=== PATIENT | male | born 1970 | race American Indian/Alaskan Native ===

== ENCOUNTER 2020-06-03 10:01 | Emergency (ER) | payer MEDICAID, MEDICARE ==
--- NOTE | 2020-06-03 10:57 | XRay Report ---
. XR chest routine 2V INDICATION / CLINICAL INFORMATION: sob COMPARISON: 05/15/2020 FINDINGS: SUPPORT DEVICES: None. HEART / MEDIASTINUM: Prominent but unchanged. Prior valve replacements. LUNGS / PLEURA: Lungs are clear. Costophrenic sulci are sharp. No pneumothorax. ADDITIONAL FINDINGS: No significant additional findings. IMPRESSION: 1. No acute findings. Signer Name: Cristhian Camp MD Signed: 06/03/2020 10:53 AM Workstation Name: [id number]
[2020-06-03 11:26] LABS: Hemoglobin 11.7 gm/dl (11.8-15.2); Mean Corpuscular HGB Conc 33 % (32-34); Mean Corpuscular Volume 91 fl (84-94); Platelet Count 167 K/mm3 (140-440); Red Blood Count 3.87 M/mm3 (3.65-5.03); Red Cell Distribution Width 22.6 % (13.2-15.2)
[2020-06-03 11:42] LABS: Albumin 4.1 g/dL (3.9-5); Calcium 8.6 mg/dL (8.4-10.2)
[2020-06-03] MEDS ORDERED: BENZONATATE 100 MG CAP PO ONE (12:12)
[2020-06-03 12:42] LABS: Basophils % (Manual) 0 % (0.0-1.8); Total Cells Counted 100
[2020-06-03 12:44] LABS: Anisocytosis Few; Macrocytosis Few; Poikilocytosis Few; Schistocytes Rare
[2020-06-03 12:45] LABS: Platelet Estimate Consistent w Auto
--- NOTE | 2020-06-03 12:48 | Emergency Department Report ---
HPI - General Chief Complaint: Nausea/Vomiting/Diarrhea Time Seen by Provider: 06/03/20 11:25 - HPI HPI: This is a 49-year-old -Algerian male presents to the emergency department with a complaint of a 2-week history of increased bowel movements. He says it is not exactly diarrhea but they are soft stools. This is associated with some intermittent cramping left-sided abdominal pains. The patient also complains of a mixed dry and productive cough over the past few days. His niece recently had an upper respiratory infection and he feels that he caught it from her. He has not taken anything for his symptoms prior to presentation. He denies any chest pain, fever, nausea, vomiting. He has a past medical history of end-stage renal disease on hemodialysis on Tuesday/Tuesday/Tuesday, CHF, GERD, hypertension and previous open heart surgery. The patient cannot remember the name of his resident services coordinator. He gets dialyzed at [facility] "near my house." ED Past Medical Hx - Past Medical History Previous Medical History?: Yes Hx Hypertension: Yes Hx Congestive Heart Failure: Yes Hx GERD: Yes Hx Renal Disease: Yes (dialysis [facility]) - Surgical History Past Surgical History?: Yes Hx Open Heart Surgery: Yes Additional Surgical History: open heart x3, most recent 01/2019. lung sx, 01/2019 - Social History Smoking Status: Never Smoker Substance Use Type: None - Medications Home Medications: Home Medications Medication Instructions Recorded Confirmed Last Taken Type Aspirin 81 mg PO DAILY 05/15/20 05/15/20 05/14/20 History Benznidazole 100 mg PO TID 05/15/20 05/15/20 05/14/20 History Fluticasone Propionate 50 mcg INNOSTRIL BID 05/15/20 05/15/20 05/13/20 History Metoprolol Tartrate 25 mg PO BID 05/15/20 05/15/20 05/14/20 History Omeprazole 20 mg PO DAILY 05/15/20 05/15/20 05/13/20 History Warfarin Sodium 4 mg PO DAILY 05/15/20 05/15/20 05/13/20 History Dicyclomine [Bentyl] 20 mg PO QID #28 tablet 05/16/20 Unknown Rx amLODIPine 5 mg PO DAILY #60 tab 05/16/20 Unknown Rx Albuterol Mdi (or & Nicu Only) 2 puff IH QID PRN #8.5 gram 06/03/20 Unknown Rx [ProAir HFA Inhaler] Benzonatate [Tessalon Perles] 100 mg PO Q8HR PRN #20 capsule 06/03/20 Unknown Rx ED Review of Systems ROS: Stated complaint: DIZZINESS, USING THE BATHROOM MORE THEN NORMAL Other details as noted in HPI Comment: All other systems reviewed and negative Constitutional: denies: chills, fever Eyes: denies: eye pain, vision change Respiratory: cough. denies: wheezing Cardiovascular: denies: chest pain, palpitations Gastrointestinal: abdominal pain, diarrhea. denies: nausea, vomiting Genitourinary: denies: dysuria, discharge Musculoskeletal: denies: back pain, arthralgia Skin: denies: rash, lesions Neurological: denies: headache, numbness Physical Exam - Physical Exam Vital Signs: Vital Signs 06/03/20 06/03/20 10:12 11:36 Temperature 98 F Pulse Rate 89 Respiratory 18 18 Rate Blood Pressure 99/65 O2 Sat by Pulse 95 97 Oximetry Physical Exam: GENERAL: The patient is well-developed well-nourished. HENT: Normocephalic. Atraumatic. Patient has moist mucous membranes. EYES: Extraocular motions are intact. NECK: Supple. Trachea is midline. CHEST/LUNGS: Clear to auscultation. There is a productive cough heard during examination. No tachypnea or accessory muscle use. There is no respiratory distress noted. HEART/CARDIOVASCULAR: Regular. There is no tachycardia. There is no murmur. ABDOMEN: Abdomen is soft. No abdominal tenderness to palpation. No guarding. Patient has normal bowel sounds. There is no abdominal distention. SKIN: Skin is warm and dry. NEURO: The patient is awake, alert, and oriented. The patient is cooperative. The patient has no focal neurologic deficits. Normal speech. Cranial nerves II through XII grossly intact. MUSCULOSKELETAL: There is no tenderness or deformity. There is no limitation range of motion. ED Course Vital Signs 06/03/20 06/03/20 10:12 11:36 Temperature 98 F Pulse Rate 89 Respiratory 18 18 Rate Blood Pressure 99/65 O2 Sat by Pulse 95 97 Oximetry ED Medical Decision Making - Lab Data Result diagrams: 06/03/20 10:55 09/01/20 10:55 - Radiology Data Radiology results: report reviewed, image reviewed interpreted by me: Chest x-ray does not show any acute process. There are no pleural effusions, obvious pneumonia and there is no pneumothorax. No significant cardiomegaly. Abdominal x-ray shows nonspecific nonobstructive bowel gas ULTRASOUND ABDOMEN, LIMITED (RIGHT UPPER QUADRANT) INDICATION / CLINICAL INFORMATION: abd pain, elevated liver enzymes. COMPARISON: CT abdomen/pelvis dated 05/15/2020. FINDINGS: PANCREAS: Visualized portion shows no significant abnormality. LIVER: The liver measures 17.4 cm in length and is normal in echogenicity. GALLBLADDER: Surgically absent. BILE DUCTS: No significant abnormality. Common bile duct measures 6 mm. RIGHT KIDNEY: Multiple cysts are seen throughout the right kidney. FREE FLUID: Small volume free fluid is seen within the right upper quadrant. ADDITIONAL FINDINGS: None. IMPRESSION: 1. Small volume free fluid within the right upper quadrant. 2. Polycystic right kidney. - Medical Decision Making Regarding the patient's cough, a chest x-ray was done that does not show any pneumonia, pleural effusions, pneumothorax, or any other acute process. There is a productive cough heard during examination but there is no signs of any respiratory or acute distress. Patient was given a dose of Tessalon Perles in the emergency department which appeared to improve the cough. Patient says that his granddaughter currently has some similar upper respiratory infection type symptoms. It is possible that he got this from her and that all of his symptoms are related to a viral syndrome. The patient has complained of having multiple bowel movements per day but that was not necessarily diarrhea. Abdominal x-ray shows nonspecific nonobstructive bowel gas without any obvious signs of constipation. Patient has a normal CBC. The complete metabolic panel shows elevated liver enzymes with an AST of 263 and an ALT of 386. The patient has complained of some left lateral abdominal pains. This was not reproducible on examination. The abdomen is soft, nondistended and nontoxic in appearance. Secondary to the elevated liver enzymes, the patient had any right upper quadrant ultrasound that showed a small amount of ascites and polycystic right kidney disease. The patient has had reassuring vital signs that his ED course including being afebrile. Patient appears safe for discharge home at this time. He has been instructed to follow-up with his primary care physician and resident services coordinator and continue his normal dialysis regimen. He has been given a prescription for Tessalon Perles for cough and albuterol inhaler. He will return to the emergency department w ith any worsening of his symptoms or with any acute distress. Critical Care Time: No Critical care attestation.: If time is entered above; I have spent that time in minutes in the direct care of this critically ill patient, excluding procedure time. ED Disposition Clinical Impression: ESRD (end stage renal disease), Elevated liver enzymes Upper respiratory infection Qualifiers: URI type: unspecified URI Qualified Code(s): J06.9 - Acute upper respiratory infection, unspecified Abdominal pain Qualifiers: Abdominal location: unspecified location Qualified Code(s): R10.9 - Unspecified abdominal pain Disposition: TO HOME OR SELFCARE Is pt being admited?: No Condition: Stable Instructions: Upper Respiratory Infection (ED), Abdominal Pain (ED), End-Stage Kidney Disease (ED) Additional Instructions: Please follow-up with your primary care physician in the next few days. Continue with your normal dialysis regimen. Return to the emergency department with any worsening of your symptoms or with any acute distress. Prescriptions: Albuterol Mdi (or & Nicu Only) [ProAir HFA Inhaler] 2 puff IH QID PRN #8.5 gram PRN Reason: Shortness Of Breath Benzonatate [Tessalon Perles] 100 mg PO Q8HR PRN #20 capsule PRN Reason: Cough Referrals: PRIMARY CARE, [Primary Care Provider] - 3-5 Days Marketing Reporting Analyst, Your [Other] - 3-5 Days [facility] [Provider Group] - 3-5 Days Time of Disposition: 14:07
--- NOTE | 2020-06-03 13:22 | XRay Report ---
ABDOMEN 2 VIEWS INDICATION / CLINICAL INFORMATION: Abd pain. COMPARISON: CT abdomen and pelvis without contrast from 05/15/2020. FINDINGS: TUBES / LINES: None. BOWEL GAS PATTERN: No significant abnormality. FREE AIR / EXTRALUMINAL GAS: None seen. ADDITIONAL FINDINGS: Severe generalized atherosclerosis is unchanged. Stable cholecystectomy and left nephrectomy changes. CHEST: No acute abnormality or significant change. IMPRESSION: No acute abnormality of the abdomen. Signer Name: Carlos Red MD Signed: 06/03/2020 1:17 PM Workstation Name: [id number]
[2020-06-03] MEDS ORDERED: IPRATROPIUM/ALBUTEROL SULFATE 3 ML AMPUL.NEB IH ONE (13:39)
--- NOTE | 2020-06-03 13:51 | Ultrasound Report ---
ULTRASOUND ABDOMEN, LIMITED (RIGHT UPPER QUADRANT) INDICATION / CLINICAL INFORMATION: abd pain, elevated liver enzymes. COMPARISON: CT abdomen/pelvis dated 05/15/2020. FINDINGS: PANCREAS: Visualized portion shows no significant abnormality. LIVER: The liver measures 17.4 cm in length and is normal in echogenicity. GALLBLADDER: Surgically absent. BILE DUCTS: No significant abnormality. Common bile duct measures 6 mm. RIGHT KIDNEY: Multiple cysts are seen throughout the right kidney. FREE FLUID: Small volume free fluid is seen within the right upper quadrant. ADDITIONAL FINDINGS: None. IMPRESSION: 1. Small volume free fluid within the right upper quadrant. 2. Polycystic right kidney. Signer Name: Eder Pittman MD Signed: 06/03/2020 1:46 PM Workstation Name: [id number]
[2020-06-03 14:09] VITALS: BP 116/70
== END 2020-06-03 14:44 | disposition home or self-care (01) ==
LOC: ED 10:01
DX: I13.2 Hypertensive heart and chronic kidney disease with heart failure and with stage 5 chronic kidney disease, or end stage renal disease (principal); N18.6 End stage renal disease; I50.9 Heart failure, unspecified; J06.9 Acute upper respiratory infection, unspecified; K21.9 Gastro-esophageal reflux disease without esophagitis; Z98.890 Other specified postprocedural states; Z79.899 Other long term (current) drug therapy; Z88.8 Allergy status to other drugs, medicaments and biological substances
CPT/HCPCS: 36415; 71046; 74019; 76705; 80053; 83880; 85007; 85025

== ENCOUNTER 2021-03-03 11:49 | Observation (INO) | payer MEDICARE ==
--- NOTE | 2021-03-03 13:12 | Emergency Department Report ---
HPI - General Chief Complaint: Chest Pain Time Seen by Provider: 03/03/21 12:36 - HPI HPI: Room 1 The patient is a 50-year-old male present with a chief complaint chest tightness and palpitations. The patient states he has had an elevated heart rate in termittently since 02/25/2021. Patient states today while on hemodialysis his heart rate again elevated and he developed chest tightness associated with shortness of breath and nausea. Patient denies vomiting or diaphoresis. Patient admits to cough and states he was Covid + 02/25/2021. Patient states he is uncertain if he had a fever. ED Past Medical Hx - Past Medical History Previous Medical History?: Yes Hx Hypertension: Yes Hx Congestive Heart Failure: Yes Hx GERD: Yes Hx Renal Disease: Yes (dialysis [facility]) - Surgical History Past Surgical History?: Yes Hx Open Heart Surgery: Yes Additional Surgical History: open heart x3, most recent 01/2019. lung sx, 01/2019 - Family History Family history: no significant - Social History Smoking Status: Former Smoker (None since 2002) Substance Use Type: None (Denies illicit drug use) - Medications Home Medications: Home Medications Medication Instructions Recorded Confirmed Last Taken Type Aspirin 81 mg PO DAILY 05/15/20 05/15/20 05/14/20 History Benznidazole 100 mg PO TID 05/15/20 05/15/20 05/14/20 History Fluticasone Propionate 50 mcg INNOSTRIL BID 05/15/20 05/15/20 05/13/20 History Metoprolol Tartrate 25 mg PO BID 05/15/20 05/15/20 05/14/20 History Omeprazole 20 mg PO DAILY 05/15/20 05/15/20 05/13/20 History Warfarin Sodium 4 mg PO DAILY 05/15/20 05/15/20 05/13/20 History Dicyclomine [Bentyl] 20 mg PO QID #28 tablet 05/16/20 Unknown Rx amLODIPine 5 mg PO DAILY #60 tab 05/16/20 Unknown Rx Albuterol Mdi (or & Nicu Only) 2 puff IH QID PRN #8.5 gram 06/03/20 Unknown Rx [ProAir HFA Inhaler] Benzonatate [Tessalon Perles] 100 mg PO Q8HR PRN #20 capsule 06/03/20 Unknown Rx ED Review of Systems ROS: Stated complaint: CHEST PAIN Other details as noted in HPI Constitutional: fever (?). denies: diaphoresis Eyes: denies: eye pain ENT: denies: throat pain Respiratory: shortness of breath Cardiovascular: chest pain, palpitations Endocrine: no symptoms reported Gastrointestinal: nausea. denies: vomiting Genitourinary: denies: testicular pain Musculoskeletal: denies: back pain Neurological: denies: headache Physical Exam - Physical Exam Vital Signs: Vital Signs 03/03/21 12:00 Temperature 97.7 F Pulse Rate 120 H Respiratory 21 Rate Blood Pressure 121/78 O2 Sat by Pulse 100 Oximetry Vital Signs 03/03/21 03/03/21 12:00 14:17 Temperature 97.7 F Pulse Rate 120 H 90 Respiratory 21 Rate Blood Pressure 121/78 114/83 O2 Sat by Pulse 100 Oximetry Physical Exam: GENERAL: The patient is well-developed well-nourished male lying on stretcher not appearing to be in acute distress. [] HEENT: Normocephalic. Atraumatic. Extraocular motions are intact. Patient has moist mucous membranes. NECK: Supple. Trachea midline CHEST/LUNGS: Clear to auscultation. There is no respiratory distress noted. HEART/CARDIOVASCULAR: Irregular. There is tachycardia. ABDOMEN: Abdomen is soft, nontender. Patient has normal bowel sounds. There is no abdominal distention. SKIN: There is no rash. There is no edema. There is no diaphoresis. NEURO: The patient is awake, alert, and oriented. The patient is cooperative. The patient has no focal neurologic deficits. The patient has normal speech MUSCULOSKELETAL: There is no evidence of acute injury. ED Course Vital Signs 03/03/21 12:00 Temperature 97.7 F Pulse Rate 120 H Respiratory 21 Rate Blood Pressure 121/78 O2 Sat by Pulse 100 Oximetry ED Medical Decision Making - Lab Data Result diagrams: 03/03/21 13:13 03/03/21 13:13 Laboratory Tests 03/03/21 03/03/21 03/03/21 13:13 13:13 13:13 WBC 6.7 RBC 4.56 Hgb 12.6 Hct 39.7 MCV 87 MCH 28 MCHC 32 RDW 26.3 H Plt Count 180 PT 27.4 H INR 2.25 H APTT 36.0 Sodium 133 L Potassium 3.7 Chloride 92.5 L Carbon Dioxide 24 Anion Gap 20 BUN 55 H Creatinine 6.8 H Estimated GFR 11 BUN/Creatinine Ratio 8 Glucose 124 H Calcium 9.2 Total Creatine Kinase 116 CK-MB (CK-2) 4.5 H CK-MB (CK-2) Rel Index 3.8 Troponin T 0.104 H* NT-Pro-B Natriuret Pep 80553 H Triglycerides 136 Cholesterol 100 LDL Cholesterol Direct 41 L HDL Cholesterol 46 Cholesterol/HDL Ratio 2.17 - EKG Data -: EKG Interpreted by Me Rate: tachycardia - EKG Data When compared to previous EKG there are: previous EKG unavailable Interpretation: nonspecific ST-T wave dipti (T wave inversions in leads I and aVL), LVH, other (Left bundle branch block) - Radiology Data Radiology results: report reviewed (Chest x-ray), image reviewed (Chest x-ray) interpreted by me: Chest x-ray-no definite focal infiltrates, no pneumothorax [facility] [address] [place] [address] XRay Report Signed Patient: YADIRA DELA CRUZ MR#: [id number] : 1970 Acct:[id number] Age/Sex: 50 / M ADM Date: 03/03/21 Loc: ED Attending Dr: Ordering Physician: KARLEY ZABALA MD Date of Service: 03/03/21 Procedure(s): XR chest 1V ap Accession Number(s): [id number] cc: KARLEY ZABALA MD Fluoro Time In Minutes: XR chest 1V ap INDICATION / CLINICAL INFORMATION: chest pain. COMPARISON: 06/03/2020 FINDINGS: SUPPORT DEVICES: None. HEART /PULMONARY VASCULATURE: Median sternotomy changes with cardiac valve prostheses. There is cardiomegaly. Pulmonary vasculature appears mildly congested. LUNGS / PLEURA: No significant pulmonary or pleural abnormality. No pneumothorax. ADDITIONAL FINDINGS: No significant additional findings. IMPRESSION: Cardiac enlargement with mild congestion of the pulmonary vasculature, suspicious for CHF. Signer Name: Halie Adair MD Signed: 03/03/2021 1:48 PM Workstation Name: [id number] Transcribed By: HO Dictated By: HALIE ADAIR MD Electronically Authenticated By: HALIE ADAIR MD Signed Date/Time: 03/03/21 1348 DD/ 1347 TD/TT: Print Cancel - Differential Diagnosis ACS, A. fib with RVR, GERD, Covid Critical care attestation.: If time is entered above; I have spent that time in minutes in the direct care of this critically ill patient, excluding procedure time. ED Disposition Clinical Impression: Chest pain, Atrial fibrillation with RVR, COVID-19 Disposition: -09 OP ADMIT IP TO THIS HOSP Is pt being admited?: Yes Does the pt Need Aspirin: Yes Condition: Fair Instructions: Nonspecific Chest Pain, Adult Heart Score - HEART Score History: Moderately suspicious EKG: Non-specific Age: 45-65 Risk factors: 1-2 risk factors Troponin: > 3x normal limit HEART Score: 6 - EKG Read Time Time EKG Completed: 13:29 EKG Read Time: 13:35
[2021-03-03] MEDS ORDERED: dilTIAZem 25 MG/5 ML INJ IV ONE (13:33)
[2021-03-03 13:51] LABS: Hematocrit 39.7 % (35.5-45.6); Hemoglobin 12.6 gm/dl (11.8-15.2); Mean Corpuscular HGB Conc 32 % (32-34); Mean Corpuscular Volume 87 fl (84-94); Platelet Count 180 K/mm3 (140-440); Red Blood Count 4.56 M/mm3 (3.65-5.03)
[2021-03-03 13:52] LABS: Red Cell Distribution Width 26.3 % (13.2-15.2)
--- NOTE | 2021-03-03 13:52 | XRay Report ---
XR chest 1V ap INDICATION / CLINICAL INFORMATION: chest pain. COMPARISON: 06/03/2020 FINDINGS: SUPPORT DEVICES: None. HEART /PULMONARY VASCULATURE: Median sternotomy changes with cardiac valve prostheses. There is cardi omegaly. Pulmonary vasculature appears mildly congested. LUNGS / PLEURA: No significant pulmonary or pleural abnormality. No pneumothorax. ADDITIONAL FINDINGS: No significant additional findings. IMPRESSION: Cardiac enlargement with mild congestion of the pulmonary vasculature, suspicious for CHF. Signer Name: Govind Adair MD Signed: 03/03/2021 1:48 PM Workstation Name: [id number]
[2021-03-03 13:58] LABS: INR 2.25 (0.87-1.13)
[2021-03-03 13:59] LABS: Creatine Kinase MB 4.5 ng/mL (0.0-4.0)
[2021-03-03 14:03] LABS: Calcium 9.2 mg/dL (8.4-10.2)
[2021-03-03 14:18] LABS: Chol/HDL Ratio 2.17 %
[2021-03-03] MEDS ORDERED: ASPIRIN 325 MG TAB PO ONE (14:59)
[2021-03-03 15:54] LABS: Total Cells Counted 100
[2021-03-03 15:56] LABS: Anisocytosis Few; Macrocytosis Few; Poikilocytosis Few; Schistocytes Rare
[2021-03-03] MEDS ORDERED: ACETAMINOPHEN 325 MG TAB PO PRN ×2 (16:21→16:31)
[2021-03-03] MEDS ORDERED: ONDANSETRON 4 MG/2 ML INJ IV PRN (16:21)
[2021-03-03] MEDS ORDERED: traMADol 50 MG TAB PO PRN (16:31)
--- NOTE | 2021-03-03 17:56 | History and Physical Report ---
History of Present Illness Date of admission: 03/03/21 16:21 Chief complaint: My chest started feeling tight while I was getting dialysis History of present illness: 50 YO Male with HTN, CHF, ESRD on HD(M,W,F), GERD, Valvular Heart Disease S/P Valve Replacement presents ED for evaluation. Patient reports "my chest felt a little tight while I was on dialysis". Patient states that he experienced left- sided chest pain while undergoing dialysis. Patient states that pain was 3/10, intermittent, lasted only a few seconds. Patient was unable to complete his dialysis session. EMS was notified and upon arrival the patient was found to be in distress and subsequently transported to [facility] for further care and evaluation of the aforementioned symptoms. The patient was seen and evaluated in the emergency department. All lab and imaging studies reviewed. Patient found to have end-stage renal disease, as well as chest pain. Patient placed in observation status and admitted to medical floor. Patient treated with remote telemetry, serial cardiac enzymes and EKG monitoring. Nephrology team consulted in ED. Patient denies fever, chills, palpitation, productive cough, skin rash, recent ill contacts. Patient was diagnosed with coronavirus infection on 02/25/2021. Patient is asymptomatic at this time. Prior admission on 05/15/2020 reviewed. All medication listed at time of admission has been reconciled. Past History Past Medical History: ESRD, GERD, heart failure, hypertension, other (See HPI) Past Surgical History: Other (Cardiac surgery, lung surgery) Social history: single. denies: smoking, alcohol abuse Family history: no significant family history. denies: hypertension Medications and Allergies Allergies Allergy/AdvReac Type Severity Reaction Status Date / Time heparin Allergy Shortness Verified 05/14/20 23:58 of Breath IV dye Allergy Shortness Uncoded 05/14/20 19:42 of Breath Home Medications Medication Instructions Recorded Confirmed Last Taken Type Aspirin 81 mg PO DAILY 05/15/20 05/15/20 05/14/20 History Benznidazole 100 mg PO TID 05/15/20 05/15/20 05/14/20 History Fluticasone Propionate 50 mcg INNOSTRIL BID 05/15/20 05/15/20 05/13/20 History Metoprolol Tartrate 25 mg PO BID 05/15/20 05/15/20 05/14/20 History Omeprazole 20 mg PO DAILY 05/15/20 05/15/20 05/13/20 History Warfarin Sodium 4 mg PO DAILY 05/15/20 05/15/20 05/13/20 History Dicyclomine [Bentyl] 20 mg PO QID #28 tablet 05/16/20 Unknown Rx amLODIPine 5 mg PO DAILY #60 tab 05/16/20 Unknown Rx Albuterol Mdi (or & Nicu Only) 2 puff IH QID PRN #8.5 gram 06/03/20 Unknown Rx [ProAir HFA Inhaler] Benzonatate [Tessalon Perles] 100 mg PO Q8HR PRN #20 capsule 06/03/20 Unknown Rx Active Meds: Active Medications Acetaminophen (Acetaminophen 325 Mg Tab) 650 mg PO Q4H PRN PRN Reason: Pain MILD(1-3)/Fever >100.5/OBRIEN Amlodipine Besylate (Amlodipine 5 Mg Tab) 5 mg PO DAILY [facility] Aspirin (Aspirin Ec 81 Mg Tab) 81 mg PO QDAY [facility] Benzonatate (Benzonatate 100 Mg Cap) 100 mg PO Q8H PRN PRN Reason: Cough Dicyclomine HCl (Dicyclomine 20 Mg Tab) 20 mg PO QID [facility] Fluticasone Propionate (Fluticasone Propionate Nasal [place] 16 Gm) 50 mcg NS BID [facility] Metoprolol Tartrate (Metoprolol Tartrate 25 Mg Tab) 25 mg PO BID [facility] Miscellaneous Medication (Benznidazole) 100 mg PO TID [facility] Ondansetron HCl (Ondansetron 4 Mg/2 Ml Inj) 4 mg IV Q8H PRN PRN Reason: Nausea And Vomiting Pantoprazole Sodium (Pantoprazole 20 Mg Tab) 20 mg PO QDAY [facility] Sodium Chloride (Sodium Chloride 0.9% 10 Ml Flush Syringe) 10 ml IV BID [facility] Sodium Chloride (Sodium Chloride 0.9% 10 Ml Flush Syringe) 10 ml IV PRN PRN PRN Reason: LINE FLUSH Sodium Chloride (Sodium Chloride 0.9% 10 Ml Flush Syringe) 10 ml IV PRN PRN PRN Reason: LINE FLUSH Tramadol HCl (Tramadol 50 Mg Tab) 50 mg PO Q6H PRN PRN Reason: Pain, Moderate (4-6) Warfarin Sodium (Warfarin 2 Mg Tab) 4 mg PO DAILY@1700 [facility] Review of Systems Constitutional: no weight loss, no weight gain, no fever, no sweats Ears, nose, mouth and throat: no ear pain, no tinnitis, no decreased hearing, no nose pain Cardiovascular: chest pain, no orthopnea, no palpitations, no edema Respiratory: no cough, no cough with sputum, no excessive sputum Gastrointestinal: no nausea, no vomiting, no diarrhea, no change in bowel habits Genitourinary Male: no hematuria, no flank pain, no urinary hesitancy, no incontinence Rectal: no pain, no incontinence, no bleeding Musculoskeletal: no neck stiffness, no neck pain, no arm numbness/tingling, no shooting leg pain, no redness of joints Integumentary: no rash, no pruritis, no sores, no wounds Neurological: no head injury, no weakness, no numbness, no tingling, no seizures, no syncope Psychiatric: no anxiety, no change in sleep habits, no sleep disturbances, no h ypersomnia, no change in appetite, no change in libido Endocrine: no cold intolerance, no polyphagia, no polydipsia, no nocturia Hematologic/Lymphatic: no easy bruising, no easy bleeding, no lymphadenopathy Allergic/Immunologic: no persistent infections Exam - Constitutional Vitals: Temp Pulse Resp BP Pulse Ox 97.7 F 95 H 11 L 117/69 100 03/03/21 12:00 03/03/21 17:00 03/03/21 17:00 03/03/21 17:00 03/03/21 17:00 General appearance: Present: mild distress - EENT Eyes: Present: PERRL ENT: hearing intact, clear oral mucosa - Neck Neck: Present: supple, normal ROM - Respiratory Respiratory effort: normal Respiratory: bilateral: CTA - Cardiovascular Heart Sounds: Present: S1 & S2. Absent: rub, click - Extremities Extremities: pulses symmetrical, No edema Peripheral Pulses: within normal limits - Abdominal General gastrointestinal: Present: soft, non-tender, non-distended, normal bowel sounds Male genitourinary: Present: normal - Integumentary Integumentary: Present: clear, warm, dry - Musculoskeletal Musculoskeletal: gait normal, strength equal bilaterally - Psychiatric Psychiatric: appropriate mood/affect, intact judgment & insight - Neurologic Neurologic: CNII-XII intact, moves all extremities HEART Score - HEART Score EKG: Non-specific Age: 45-65 Risk factors: 1-2 risk factors Troponin: Troponin T 0.104 ng/mL (0.00-0.029) H* 03/03/21 13:13 Troponin: > 3x normal limit Results - Labs CBC & Chem 7: 03/03/21 13:13 03/03/21 13:13 Labs: Abnormal lab results 03/03/21 03/03/21 03/03/21 Range/Units 13:13 13:13 13:13 RDW 26.3 H (13.2-15.2) % Seg Neuts % (Manual) 72.0 H (40.0-70.0) % Monocytes % (Manual) 11.0 H (0.0-7.3) % Lymphocytes # (Manual) 1.1 L (1.2-5.4) K/mm3 PT 27.4 H (12.2-14.9) Sec. INR 2.25 H (0.87-1.13) Sodium 133 L (137-145) mmol/L Chloride 92.5 L (98-107) mmol/L BUN 55 H (9-20) mg/dL Creatinine 6.8 H (0.8-1.3) mg/dL Glucose 124 H (75-100) mg/dL CK-MB (CK-2) 4.5 H (0.0-4.0) ng/mL Troponin T 0.104 H* (0.00-0.029) ng/mL NT-Pro-B Natriuret Pep 68101 H (0-450) pg/mL LDL Cholesterol Direct 41 L (50-130) mg/dL Assessment and Plan - Patient Problems (1) Chest pain Current Visit: Yes Status: Acute Plan to address problem: Chest pain protocol: Serial cardiac enzymes, EKG, remote telemetry monitoring, supportive care, morphine, submental oxygen, nitro, aspirin. Blood pressure control. (2) End stage renal disease Current Visit: Yes Status: Acute Plan to address problem: Nephrology team consulted, dialysis as per renal team, strict I's/O, avoid nephrotoxic agents. (3) Valvular heart disease Current Visit: Yes Status: Acute Plan to address problem: Continue therapeutic anticoagulation, supportive care. (4) COVID-19 Current Visit: Yes Status: Acute Plan to address problem: Patient currently asymptomatic, contact precaution, isolation precautions, supportive care. (5) DVT prophylaxis Current Visit: Yes Status: Acute Plan to address problem: SCD to bilateral lower extremities while in bed, continue therapeutic anticoagulation
[2021-03-03] MEDS ORDERED: [UNRECOGNIZED DRUG - OTHER] PO SCH (20:00)
[2021-03-03] MEDS ORDERED: NON-FORMULARY EACH (Metoprolol Tartrate 25 MG) PO SCH (22:00)
[2021-03-03] MEDS ORDERED: FLUTICASONE PROPIONATE 50 MCG InNostril SCH (22:00)
[2021-03-03] MEDS: METOPROLOL TARTRATE 25 MG TAB PO SCH (22:55)
[2021-03-03] MEDS: WARFARIN 2 MG TAB PO SCH (22:57)
[2021-03-03] MEDS: DICYCLOMINE 20 MG TAB PO SCH (22:59)
[2021-03-03] MEDS: BENZONATATE 100 MG CAP PO PRN (22:59)
[2021-03-04 06:30] LABS: INR 2.44 (0.87-1.13)
[2021-03-04 07:28] LABS: Calcium 9.3 mg/dL (8.4-10.2)
--- NOTE | 2021-03-04 08:22 | Progress Note ---
Assessment and Plan Assessment and plan: -- Chest pain/angina Current Visit: Yes Status: Acute Plan to address problem: Aspirin, beta-blockers, nitrates, statin Serial cardiac enzymes, serial EKG Patient has multiple risk factors Cardiology consult --Non-ST elevation CO; Current Visit: Yes Status: Acute Patient has chronic elevation of troponin due to ESRD However patient has multiple risk factors Cardiology consult for further evaluation and management as needed Echocardiogram for LV function ejection fraction if not done last 6 months --History of atrial fibrillation; rate controlled Current Visit: Yes Status: Acute continue beta-blockers, chronic anticoagulation with Coumadin Therapeutic INR --History of valvular heart disease Current Visit: Yes Status: Acute On Coumadin , therapeutic INR Supportive care --ESRD on hemodialysis Current Visit: Yes Status: Acute. Nephrology consulted, HD per schedule --PUI/high suspicion for COVID-19 Current Visit: Yes Status: Acute isolation, contact and droplet Request: A PCR, oxygen evaluation ID consulted for test is positive --DVT prophylaxis Current Visit: Yes Status: Acute Patient is already on Coumadin Closely monitor the patient and adjust the management as needed History Interval history: I have seen and examined the patient at the bedside Patient's chart and medications reviewed Patient complains of some chest pain Positive troponins[patient has chronic elevation of troponins due to ESRD] However patient has multiple risk factors Vital signs noted Hospitalist Physical - Constitutional Vitals: Temp Pulse Resp BP Pulse Ox 97.5 F L 96 H 20 98/61 93 03/04/21 05:17 03/04/21 05:17 03/04/21 05:17 03/04/21 05:17 03/04/21 05:17 General appearance: Present: mild distress, well-nourished - EENT Eyes: Present: PERRL, EOM intact - Neck Neck: Present: supple, normal ROM - Respiratory Respiratory effort: normal Respiratory: bilateral: diminished, negative: rales, rhonchi, wheezing - Cardiovascular Rhythm: regular Heart Sounds: Present: S1 & S2 - Extremities Extremities: no ischemia, No edema - Abdominal General gastrointestinal: soft, non-tender, non-distended, normal bowel sounds - Integumentary Integumentary: Present: clear, warm - Psychiatric Psychiatric: appropriate mood/affect, cooperative - Neurologic Neurologic: CNII-XII intact, moves all extremities HEART Score - HEART Score EKG: Non-specific Age: 45-65 Risk factors: 1-2 risk factors Troponin: WBC 6.7 K/mm3 (4.5-11.0) 03/03/21 13:13 RBC 4.56 M/mm3 (3.65-5.03) 03/03/21 13:13 Hgb 12.6 gm/dl (11.8-15.2) 03/03/21 13:13 Hct 39.7 % (35.5-45.6) 03/03/21 13:13 MCV 87 fl (84-94) 03/03/21 13:13 MCH 28 pg (28-32) 03/03/21 13:13 MCHC 32 % (32-34) 03/03/21 13:13 RDW 26.3 % (13.2-15.2) H 03/03/21 13:13 Plt Count 180 K/mm3 (140-440) 03/03/21 13:13 Add Manual Diff Complete 03/03/21 13:13 Total Counted 100 03/03/21 13:13 Seg Neuts % (Manual) 72.0 % (40.0-70.0) H 03/03/21 13:13 Lymphocytes % (Manual) 17.0 % (13.4-35.0) 03/03/21 13:13 Monocytes % (Manual) 11.0 % (0.0-7.3) H 03/03/21 13:13 Nucleated RBC % Not Reportable 03/03/21 13:13 Seg Neutrophils # Man 4.8 K/mm3 (1.8-7.7) 03/03/21 13:13 Band Neutrophils # 0.0 K/mm3 03/03/21 13:13 Lymphocytes # (Manual) 1.1 K/mm3 (1.2-5.4) L 03/03/21 13:13 Abs React Lymphs (Man) 0.0 K/mm3 03/03/21 13:13 Monocytes # (Manual) 0.7 K/mm3 (0.0-0.8) 03/03/21 13:13 Eosinophils # (Manual) 0.0 K/mm3 (0.0-0.4) 03/03/21 13:13 Basophils # (Manual) 0.0 K/mm3 (0.0-0.1) 03/03/21 13:13 Metamyelocytes # 0.0 K/mm3 03/03/21 13:13 Myelocytes # 0.0 K/mm3 03/03/21 13:13 Promyelocytes # 0.0 K/mm3 03/03/21 13:13 Blast Cells # 0.0 K/mm3 03/03/21 13:13 WBC Morphology Not Reportable 03/03/21 13:13 Hypersegmented Neuts Not Reportable 03/03/21 13:13 Hyposegmented Neuts Not Reportable 03/03/21 13:13 Hypogranular Neuts Not Reportable 03/03/21 13:13 Smudge Cells Not Reportable 03/03/21 13:13 Toxic Granulation Not Reportable 03/03/21 13:13 Toxic Vacuolation Not Reportable 03/03/21 13:13 Dohle Bodies Not Reportable 03/03/21 13:13 Pelger-Huet Anomaly Not Reportable 03/03/21 13:13 Dia Rods Not Reportable 03/03/21 13:13 Platelet Estimate Not Reportable 03/03/21 13:13 Clumped Platelets Not Reportable 03/03/21 13:13 Plt Clumps, EDTA Not Reportable 03/03/21 13:13 Large Platelets Not Reportable 03/03/21 13:13 Giant Platelets Not Reportable 03/03/21 13:13 Platelet Satelliting Not Reportable 03/03/21 13:13 Plt Morphology Comment Not Reportable 03/03/21 13:13 RBC Morphology Not Reportable 03/03/21 13:13 Dimorphic RBCs Not Reportable 03/03/21 13:13 Polychromasia Not Reportable 03/03/21 13:13 Hypochromasia Not Reportable 03/03/21 13:13 Poikilocytosis Few 03/03/21 13:13 Anisocytosis Few 03/03/21 13:13 Microcytosis Not Reportable 03/03/21 13:13 Macrocytosis Few 03/03/21 13:13 Spherocytes Not Reportable 03/03/21 13:13 Pappenheimer Bodies Not Reportable 03/03/21 13:13 Sickle Cells Not Reportable 03/03/21 13:13 Target Cells Not Reportable 03/03/21 13:13 Tear Drop Cells Not Reportable 03/03/21 13:13 Ovalocytes Not Reportable 03/03/21 13:13 Helmet Cells Not Reportable 03/03/21 13:13 [place] Bodies Not Reportable 03/03/21 13:13 [place] Rings Not Reportable 03/03/21 13:13 [place] Cells Not Reportable 03/03/21 13:13 Bite Cells Not Reportable 03/03/21 13:13 Crenated Cell Not Reportable 03/03/21 13:13 Elliptocytes Not Reportable 03/03/21 13:13 Acanthocytes (Spur) Not Reportable 03/03/21 13:13 Rouleaux Not Reportable 03/03/21 13:13 Hemoglobin C Crystals Not Reportable 03/03/21 13:13 Schistocytes Rare 03/03/21 13:13 Malaria parasites Not Reportable 03/03/21 13:13 Cedric Bodies Not Reportable 03/03/21 13:13 Hem Pathologist Commnt No 03/03/21 13:13 PT 29.1 Sec. (12.2-14.9) H 03/04/21 05:54 INR 2.44 (0.87-1.13) H 03/04/21 05:54 APTT 36.0 Sec. (24.2-36.6) 03/03/21 13:13 Sodium 135 mmol/L (137-145) L 03/04/21 05:54 Potassium 4.3 mmol/L (3.6-5.0) 03/04/21 05:54 Chloride 95.1 mmol/L (98-107) L 03/04/21 05:54 Carbon Dioxide 22 mmol/L (22-30) 03/04/21 05:54 Anion Gap 22 mmol/L 03/04/21 05:54 BUN 82 mg/dL (9-20) H 03/04/21 05:54 Creatinine 8.9 mg/dL (0.8-1.3) H 03/04/21 05:54 Estimated GFR 8 ml/min 03/04/21 05:54 BUN/Creatinine Ratio 9 % 03/04/21 05:54 Glucose 99 mg/dL (75-100) 03/04/21 05:54 Calcium 9.3 mg/dL (8.4-10.2) 03/04/21 05:54 Total Creatine Kinase 116 units/L (55-170) 03/03/21 13:13 CK-MB (CK-2) 4.5 ng/mL (0.0-4.0) H 03/03/21 13:13 CK-MB (CK-2) Rel Index 3.8 (0-4) 03/03/21 13:13 Troponin T 0.122 ng/mL (0.00-0.029) H* 03/03/21 22:44 NT-Pro-B Natriuret Pep 39025 pg/mL (0-450) H 03/03/21 13:13 Triglycerides 136 mg/dL (2-149) 03/03/21 13:13 Cholesterol 100 mg/dL (50-199) 03/03/21 13:13 LDL Cholesterol Direct 41 mg/dL (50-130) L 03/03/21 13:13 HDL Cholesterol 46 mg/dL (40-59) 03/03/21 13:13 Cholesterol/HDL Ratio 2.17 % 03/03/21 13:13 Troponin: > 3x normal limit Results - Labs CBC & Chem 7: 03/03/21 13:13 03/05/21 08:00 Labs: Laboratory Last Values WBC 6.7 K/mm3 (4.5-11.0) 03/03/21 13:13 RBC 4.56 M/mm3 (3.65-5.03) 03/03/21 13:13 Hgb 12.6 gm/dl (11.8-15.2) 03/03/21 13:13 Hct 39.7 % (35.5-45.6) 03/03/21 13:13 MCV 87 fl (84-94) 03/03/21 13:13 MCH 28 pg (28-32) 03/03/21 13:13 MCHC 32 % (32-34) 03/03/21 13:13 RDW 26.3 % (13.2-15.2) H 03/03/21 13:13 Plt Count 180 K/mm3 (140-440) 03/03/21 13:13 Add Manual Diff Complete 03/03/21 13:13 Total Counted 100 03/03/21 13:13 Seg Neuts % (Manual) 72.0 % (40.0-70.0) H 03/03/21 13:13 Lymphocytes % (Manual) 17.0 % (13.4-35.0) 03/03/21 13:13 Monocytes % (Manual) 11.0 % (0.0-7.3) H 03/03/21 13:13 Nucleated RBC % Not Reportable 03/03/21 13:13 Seg Neutrophils # Man 4.8 K/mm3 (1.8-7.7) 03/03/21 13:13 Band Neutrophils # 0.0 K/mm3 03/03/21 13:13 Lymphocytes # (Manual) 1.1 K/mm3 (1.2-5.4) L 03/03/21 13:13 Abs React Lymphs (Man) 0.0 K/mm3 03/03/21 13:13 Monocytes # (Manual) 0.7 K/mm3 (0.0-0.8) 03/03/21 13:13 Eosinophils # (Manual) 0.0 K/mm3 (0.0-0.4) 03/03/21 13:13 Basophils # (Manual) 0.0 K/mm3 (0.0-0.1) 03/03/21 13:13 Metamyelocytes # 0.0 K/mm3 03/03/21 13:13 Myelocytes # 0.0 K/mm3 03/03/21 13:13 Promyelocytes # 0.0 K/mm3 03/03/21 13:13 Blast Cells # 0.0 K/mm3 03/03/21 13:13 WBC Morphology Not Reportable 03/03/21 13:13 Hypersegmented Neuts Not Reportable 03/03/21 13:13 Hyposegmented Neuts Not Reportable 03/03/21 13:13 Hypogranular Neuts Not Reportable 03/03/21 13:13 Smudge Cells Not Reportable 03/03/21 13:13 Toxic Granulation Not Reportable 03/03/21 13:13 Toxic Vacuolation Not Reportable 03/03/21 13:13 Dohle Bodies Not Reportable 03/03/21 13:13 Pelger-Huet Anomaly Not Reportable 03/03/21 13:13 Dai Rods Not Reportable 03/03/21 13:13 Platelet Estimate Not Reportable 03/03/21 13:13 Clumped Platelets Not Reportable 03/03/21 13:13 Plt Clumps, EDTA Not Reportable 03/03/21 13:13 Large Platelets Not Reportable 03/03/21 13:13 Giant Platelets Not Reportable 03/03/21 13:13 Platelet Satelliting Not Reportable 03/03/21 13:13 Plt Morphology Comment Not Reportable 03/03/21 13:13 RBC Morphology Not Reportable 03/03/21 13:13 Dimorphic RBCs Not Reportable 03/03/21 13:13 Polychromasia Not Reportable 03/03/21 13:13 Hypochromasia Not Reportable 03/03/21 13:13 Poikilocytosis Few 03/03/21 13:13 Anisocytosis Few 03/03/21 13:13 Microcytosis Not Reportable 03/03/21 13:13 Macrocytosis Few 03/03/21 13:13 Spherocytes Not Reportable 03/03/21 13:13 Pappenheimer Bodies Not Reportable 03/03/21 13:13 Sickle Cells Not Reportable 03/03/21 13:13 Target Cells Not Reportable 03/03/21 13:13 Tear Drop Cells Not Reportable 03/03/21 13:13 Ovalocytes Not Reportable 03/03/21 13:13 Helmet Cells Not Reportable 03/03/21 13:13 [place] Bodies Not Reportable 03/03/21 13:13 [place] Rings Not Reportable 03/03/21 13:13 [place] Cells Not Reportable 03/03/21 13:13 Bite Cells Not Reportable 03/03/21 13:13 Crenated Cell Not Reportable 03/03/21 13:13 Elliptocytes Not Reportable 03/03/21 13:13 Acanthocytes (Spur) Not Reportable 03/03/21 13:13 Rouleaux Not Reportable 03/03/21 13:13 Hemoglobin C Crystals Not Reportable 03/03/21 13:13 Schistocytes Rare 03/03/21 13:13 Malaria parasites Not Reportable 03/03/21 13:13 Cedric Bodies Not Reportable 03/03/21 13:13 Hem Pathologist Commnt No 03/03/21 13:13 PT 29.1 Sec. (12.2-14.9) H 03/04/21 05:54 INR 2.44 (0.87-1.13) H 03/04/21 05:54 APTT 36.0 Sec. (24.2-36.6) 03/03/21 13:13 Sodium 135 mmol/L (137-145) L 03/04/21 05:54 Potassium 4.3 mmol/L (3.6-5.0) 03/04/21 05:54 Chloride 95.1 mmol/L (98-107) L 03/04/21 05:54 Carbon Dioxide 22 mmol/L (22-30) 03/04/21 05:54 Anion Gap 22 mmol/L 03/04/21 05:54 BUN 82 mg/dL (9-20) H 03/04/21 05:54 Creatinine 8.9 mg/dL (0.8-1.3) H 03/04/21 05:54 Estimated GFR 8 ml/min 03/04/21 05:54 BUN/Creatinine Ratio 9 % 03/04/21 05:54 Glucose 99 mg/dL (75-100) 03/04/21 05:54 Calcium 9.3 mg/dL (8.4-10.2) 03/04/21 05:54 Total Creatine Kinase 116 units/L (55-170) 03/03/21 13:13 CK-MB (CK-2) 4.5 ng/mL (0.0-4.0) H 03/03/21 13:13 CK-MB (CK-2) Rel Index 3.8 (0-4) 03/03/21 13:13 Troponin T 0.122 ng/mL (0.00-0.029) H* 03/03/21 22:44 NT-Pro-B Natriuret Pep 22735 pg/mL (0-450) H 03/03/21 13:13 Triglycerides 136 mg/dL (2-149) 03/03/21 13:13 Cholesterol 100 mg/dL (50-199) 03/03/21 13:13 LDL Cholesterol Direct 41 mg/dL (50-130) L 03/03/21 13:13 HDL Cholesterol 46 mg/dL (40-59) 03/03/21 13:13 Cholesterol/HDL Ratio 2.17 % 03/03/21 13:13 [place]eda/IV: Voiding Method Toilet Active Medications - Current Medications Current Medications: Generic Name Dose Route Start Last Admin Trade Name Freq PRN Reason Stop Dose Admin Acetaminophen 650 mg 03/03/21 16:21 Acetaminophen 325 Mg Tab PO Q4H PRN Pain MILD(1-3)/Fever >100.5/OBRIEN Amlodipine Besylate 5 mg 03/04/21 10:00 Amlodipine 5 Mg Tab PO DAILY [facility] Aspirin 81 mg 03/04/21 10:00 Aspirin Ec 81 Mg Tab PO QDAY [facility] Benzonatate 100 mg 03/03/21 16:23 03/03/21 22:59 Benzonatate 100 Mg Cap PO 100 mg Q8H PRN Administration Cough Dicyclomine HCl 20 mg 03/03/21 18:00 03/03/21 22:59 Dicyclomine 20 Mg Tab PO 20 mg QID [facility] Administration Fluticasone Propionate 50 mcg 03/04/21 10:00 Fluticasone Propionate Nasal [place] 16 Gm NS BID [facility] Metoprolol Tartrate 25 mg 03/03/21 22:00 03/03/21 22:55 Metoprolol Tartrate 25 Mg Tab PO Not Given BID [facility] Ondansetron HCl 4 mg 03/03/21 16:21 03/03/21 22:59 Ondansetron 4 Mg/2 Ml Inj IV 4 mg Q8H PRN Administration Nausea And Vomiting Pantoprazole Sodium 20 mg 03/04/21 10:00 Pantoprazole 20 Mg Tab PO QDAY [facility] Sodium Chloride 10 ml 03/03/21 22:00 03/03/21 22:59 Sodium Chloride 0.9% 10 Ml Flush Syringe IV 10 ml BID NARDA Administration Sodium Chloride 10 ml 03/03/21 16:21 Sodium Chloride 0.9% 10 Ml Flush Syringe IV PRN PRN LINE FLUSH Tramadol HCl 50 mg 03/03/21 16:31 Tramadol 50 Mg Tab PO Q6H PRN Pain, Moderate (4-6) Warfarin Sodium 4 mg 03/03/21 17:00 03/03/21 22:57 Warfarin 2 Mg Tab PO 4 mg DAILY@1700 [facility] Administration
[2021-03-04] MEDS: DICYCLOMINE 20 MG TAB PO SCH ×5 (09:22→22:05)
[2021-03-04] MEDS ORDERED: WARFARIN SODIUM 4 MG PO SCH (10:00)
[2021-03-04] MEDS ORDERED: amLODIPine 5 MG TAB PO SCH (10:00)
[2021-03-04] MEDS ORDERED: NON-FORMULARY EACH (Aspirin 81 MG) PO SCH (10:00)
[2021-03-04] MEDS ORDERED: NON-FORMULARY EACH (Omeprazole 20 MG) PO SCH (10:00)
--- NOTE | 2021-03-04 10:15 | Electrocardiograph Report ---
[facility] Test Date: 2021-03-03 Test Time: 13:29:22 Pat Name: YADIRA DELA CRUZ Department: Room: A359 1 Gender: M Medical Laboratory Assistant: TEO : 1970 Requested By: KARLEY ZABALA Order Number: [id number] Reading MD: Augustine Elias Measurements Intervals [place] Rate: 116 P: 81 IN: 336 QRS: -55 QRSD: 171 T: 99 QT: 403 QTc: 561 Interpretive Statements Sinus tachycardia Ventricular premature complex Prolonged IN interval Biatrial enlargement Left bundle branch block Electronically Signed On 03-04-2021 10:15:07 EDT by Augustine Elias
--- NOTE | 2021-03-04 10:17 | Electrocardiograph Report ---
[facility] Test Date: 2021-03-04 Test Time: 08:04:33 Pat Name: YADIRA DELA CRUZ Department: Room: A359 1 Gender: M White Mixing Operator: HAYLEY : 1970 Requested By: LYUDMILA FORD Order Number: [id number] Reading MD: Augustine Elias Measurements Intervals [place] Rate: 89 P: 61 MA: 196 QRS: -58 QRSD: 176 T: 91 QT: 438 QTc: 534 Interpretive Statements Sinus rhythm Probable left atrial enlargement Left bundle branch block Compared to ECG 03/03/2021 13:29:22 Sinus tachycardia no longer present Ventricular premature complex(es) no longer present First degree AV block no longer present Intraventricular conduction delay no longer present ST (T wave) deviation no longer present Electronically Signed On 03-04-2021 10:17:18 EDT by Augustine Elias
[2021-03-04] MEDS: ASPIRIN EC 81 MG TAB PO SCH (10:39)
[2021-03-04] MEDS: BENZONATATE 100 MG CAP PO PRN (10:40)
[2021-03-04] MEDS: PANTOPRAZOLE 20 MG TAB PO SCH (10:40)
[2021-03-04] MEDS: METOPROLOL TARTRATE 25 MG TAB PO SCH ×3 (10:41→22:07)
[2021-03-04] MEDS: FLUTICASONE PROPIONATE NASAL SPRAY 16 GM NS SCH ×2 (10:46→22:08)
--- NOTE | 2021-03-04 12:07 | Electrocardiograph Report ---
[facility] Test Date: 2021-03-04 Test Time: 11:03:22 Pat Name: YADIRA DELA CRUZ Department: Room: A359 1 Gender: M Tool Grinder: HAYLEY : 1970 Requested By: LYUDMILA FORD Order Number: [id number] Reading MD: Augustine Elias Measurements Intervals [place] Rate: 92 P: 53 CO: 190 QRS: -55 QRSD: 175 T: 101 QT: 428 QTc: 530 Interpretive Statements Sinus rhythm Left bundle branch block Electronically Signed On 03-04-2021 12:07:01 EDT by Augustine Elias
--- NOTE | 2021-03-04 14:29 | Consultation ---
History of Present Illness - Reason for Consult Consult date: 03/04/21 - History of Present Illness This tana 49 year old male who presented to the E.R for a chief complaint of cough and chest pains during his dialysis treatment yesterday. Patient goes to [facility] on T,T,S schedule currently at their covid clinic as he is COVID positive. Patient not directly seen and examined to limit and reduce the risk of exposure due to being covid positive. 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 We are being consulted for management of this patient's ESRD. Past History Past Medical History: ESRD, GERD, heart failure, hypertension, other (See HPI) Past Surgical History: Other (Cardiac surgery, lung surgery) Social history: single. denies: smoking, alcohol abuse Family history: no significant family history. denies: hypertension Medications and Allergies Allergies Allergy/AdvReac Type Severity Reaction Status Date / Time heparin Allergy Shortness Verified 05/14/20 23:58 of Breath IV dye Allergy Shortness Uncoded 05/14/20 19:42 of Breath Home Medications Medication Instructions Recorded Confirmed Last Taken Type Aspirin 81 mg PO DAILY 05/15/20 03/04/21 03/02/21 10:00 History Benznidazole 100 mg PO TID 05/15/20 03/04/21 03/02/21 10:00 History Fluticasone Propionate 50 mcg INNOSTRIL BID 05/15/20 03/04/21 03/02/21 History Metoprolol Tartrate 25 mg PO BID 05/15/20 03/04/21 03/02/21 08:00 History 25 Omeprazole 20 mg PO DAILY 05/15/20 03/04/21 03/02/21 08:00 History Warfarin Sodium 4 mg PO DAILY 05/15/20 03/04/21 03/02/21 History Dicyclomine [Bentyl] 20 mg PO QID #28 tablet 05/16/20 03/04/21 03/04/21 10:00 Rx amLODIPine 5 mg PO DAILY #60 tab 05/16/20 03/04/21 03/02/21 Rx Albuterol Mdi (or & Nicu Only) 2 puff IH QID PRN #8.5 gram 06/03/20 03/04/21 03/02/21 10:00 Rx [ProAir HFA Inhaler] Benzonatate [Tessalon Perles] 100 mg PO Q8HR PRN #20 capsule 06/03/20 03/04/21 03/02/21 Rx Active Meds: Active Medications Acetaminophen (Acetaminophen 325 Mg Tab) 650 mg PO Q4H PRN PRN Reason: Pain MILD(1-3)/Fever >100.5/OBRIEN Amlodipine Besylate (Amlodipine 5 Mg Tab) 5 mg PO DAILY [facility] Last Admin: 03/04/21 10:41 Dose: Not Given Documented by: Aspirin (Aspirin Ec 81 Mg Tab) 81 mg PO QDAY [facility] Last Admin: 03/04/21 10:39 Dose: 81 mg Documented by: Benzonatate (Benzonatate 100 Mg Cap) 100 mg PO Q8H PRN PRN Reason: Cough Last Admin: 03/04/21 10:40 Dose: 100 mg Documented by: Dicyclomine HCl (Dicyclomine 20 Mg Tab) 20 mg PO QID [facility] Last Admin: 03/04/21 10:41 Dose: 20 mg Documented by: Fluticasone Propionate (Fluticasone Propionate Nasal [place] 16 Gm) 50 mcg NS BID [facility] Last Admin: 03/04/21 10:46 Dose: Not Given Documented by: Metoprolol Tartrate (Metoprolol Tartrate 25 Mg Tab) 25 mg PO BID [facility] Last Admin: 03/04/21 10:41 Dose: Not Given Documented by: Ondansetron HCl (Ondansetron 4 Mg/2 Ml Inj) 4 mg IV Q8H PRN PRN Reason: Nausea And Vomiting Last Admin: 03/03/21 22:59 Dose: 4 mg Documented by: Pantoprazole Sodium (Pantoprazole 20 Mg Tab) 20 mg PO QDAY [facility] Last Admin: 03/04/21 10:40 Dose: 20 mg Documented by: Sodium Chloride (Sodium Chloride 0.9% 10 Ml Flush Syringe) 10 ml IV BID [facility] Last Admin: 03/04/21 10:43 Dose: 10 ml Documented by: Sodium Chloride (Sodium Chloride 0.9% 10 Ml Flush Syringe) 10 ml IV PRN PRN PRN Reason: LINE FLUSH Tramadol HCl (Tramadol 50 Mg Tab) 50 mg PO Q6H PRN PRN Reason: Pain, Moderate (4-6) Last Admin: 03/04/21 10:40 Dose: 50 mg Documented by: Warfarin Sodium (Warfarin 2 Mg Tab) 4 mg PO DAILY@1700 NARDA Last Admin: 03/03/21 22:57 Dose: 4 mg Documented by: Exam - Vital Signs Vital signs: Vital Signs Temp Pulse Resp BP Pulse Ox 97.7 F 120 H 21 121/78 100 03/03/21 12:00 03/03/21 12:00 03/03/21 12:00 03/03/21 12:00 03/03/21 12:00 Results - Lab Results 03/03/21 13:13 03/04/21 05:54 Most recent lab results Calcium 9.3 mg/dL (8.4-10.2) 03/04/21 05:54 Assessment and Plan Assessment: (Principal Problem) Chest Pain End Stage Renal Disease Hypertension Afib COVID-19 Plan: -Hemodialysis tomorrow for UF and clearance -Fluid restriction of 1 liter per day -Obtain daily weights -Monitor I/O's -Renally dose medications -Assess dialysis needs daily
--- NOTE | 2021-03-04 15:29 | Consultation ---
History of Present Illness Consult date: 03/04/21 Requesting physician: RICHARD RAMAN Consult reason: elevated troponin History of present illness: This patient is a 50-year-old male with a significant history of ESRD on HD, heart failure, hypertension, GERD, A. fib with CVR and valvular heart disease anticoagulated on Coumadin, history of mitral valve replacement. He is previously unknown to our office, he is followed by Dr. Eliane Cline, cardiology with [facility]. Patient presents to [facility] via EMS with complaint of episode of chest pain during HD. Chest pain is described as 3 out of 10, sharp " tugging sensation", mid to left chest, lasting several seconds. Cardiology is consulted after labs reveal elevated troponin x2. At time of interview, chest pain is resolved and patient has no cardiac symptoms. Review of previous visits reveal consistently elevated troponins that are consistent with current levels. Patient denies any recurrence of chest pain symptoms that brought him to the ER. He denies any weakness, syncope, shortness of breath, abdominal pain, N/V/D. He states he has known "leaky valve" that is in planning to be repaired at [facility]. Patient is Covid positive. Past History Past Medical History: ESRD, GERD, heart failure, hypertension, other (See HPI) Past Surgical History: Other (Cardiac surgery, lung surgery) Social history: single. denies: smoking, alcohol abuse Family history: no significant family history. denies: hypertension Medications and Allergies Allergies Allergy/AdvReac Type Severity Reaction Status Date / Time heparin Allergy Shortness Verified 05/14/20 23:58 of Breath IV dye Allergy Shortness Uncoded 05/14/20 19:42 of Breath Home Medications Medication Instructions Recorded Confirmed Last Taken Type Aspirin 81 mg PO DAILY 05/15/20 03/04/21 03/02/21 10:00 History Benznidazole 100 mg PO TID 05/15/20 03/04/21 03/02/21 10:00 History Fluticasone Propionate 50 mcg INNOSTRIL BID 05/15/20 03/04/21 03/02/21 History Metoprolol Tartrate 25 mg PO BID 05/15/20 03/04/21 03/02/21 08:00 History 25 Omeprazole 20 mg PO DAILY 05/15/20 03/04/21 03/02/21 08:00 History Warfarin Sodium 4 mg PO DAILY 05/15/20 03/04/21 03/02/21 History Dicyclomine [Bentyl] 20 mg PO QID #28 tablet 05/16/20 03/04/21 03/04/21 10:00 Rx amLODIPine 5 mg PO DAILY #60 tab 05/16/20 03/04/21 03/02/21 Rx Albuterol Mdi (or & Nicu Only) 2 puff IH QID PRN #8.5 gram 06/03/20 03/04/21 03/02/21 10:00 Rx [ProAir HFA Inhaler] Benzonatate [Tessalon Perles] 100 mg PO Q8HR PRN #20 capsule 06/03/20 03/04/21 03/02/21 Rx Active Meds: Active Medications Acetaminophen (Acetaminophen 325 Mg Tab) 650 mg PO Q4H PRN PRN Reason: Pain MILD(1-3)/Fever >100.5/OBRIEN Amlodipine Besylate (Amlodipine 5 Mg Tab) 5 mg PO DAILY [facility] Last Admin: 03/04/21 10:41 Dose: Not Given Documented by: Aspirin (Aspirin Ec 81 Mg Tab) 81 mg PO QDAY [facility] Last Admin: 03/04/21 10:39 Dose: 81 mg Documented by: Benzonatate (Benzonatate 100 Mg Cap) 100 mg PO Q8H PRN PRN Reason: Cough Last Admin: 03/04/21 10:40 Dose: 100 mg Documented by: Dicyclomine HCl (Dicyclomine 20 Mg Tab) 20 mg PO QID [facility] Last Admin: 03/04/21 14:39 Dose: 20 mg Documented by: Fluticasone Propionate (Fluticasone Propionate Nasal [place] 16 Gm) 50 mcg NS BID [facility] Last Admin: 03/04/21 10:46 Dose: Not Given Documented by: Metoprolol Tartrate (Metoprolol Tartrate 25 Mg Tab) 25 mg PO BID [facility] Last Admin: 03/04/21 10:41 Dose: Not Given Documented by: Ondansetron HCl (Ondansetron 4 Mg/2 Ml Inj) 4 mg IV Q8H PRN PRN Reason: Nausea And Vomiting Last Admin: 03/03/21 22:59 Dose: 4 mg Documented by: Pantoprazole Sodium (Pantoprazole 20 Mg Tab) 20 mg PO QDAY [facility] Last Admin: 03/04/21 10:40 Dose: 20 mg Documented by: Sodium Chloride (Sodium Chloride 0.9% 10 Ml Flush Syringe) 10 ml IV BID [facility] Last Admin: 03/04/21 10:43 Dose: 10 ml Documented by: Sodium Chloride (Sodium Chloride 0.9% 10 Ml Flush Syringe) 10 ml IV PRN PRN PRN Reason: LINE FLUSH Tramadol HCl (Tramadol 50 Mg Tab) 50 mg PO Q6H PRN PRN Reason: Pain, Moderate (4-6) Last Admin: 03/04/21 10:40 Dose: 50 mg Documented by: Warfarin Sodium (Warfarin 2 Mg Tab) 4 mg PO DAILY@1700 [facility] Last Admin: 03/03/21 22:57 Dose: 4 mg Documented by: Review of Systems Constitutional: no weight loss, no weight gain, no fever, no chills, no sweats Ears, nose, mouth and throat: no ear pain, no ear discharge, no nose pain, no nasal congestion, no nasal discharge Cardiovascular: chest pain, no orthopnea, no palpitations, no rapid/irregular heart beat, no edema, no syncope, no lightheadedness, no shortness of breath Respiratory: no cough, no hemoptysis, no shortness of breath, no dyspnea on exertion Gastrointestinal: no abdominal pain, no nausea, no vomiting, no diarrhea Genitourinary Male: no flank pain Musculoskeletal: no neck stiffness, no neck pain, no shooting arm pain, no arm numbness/tingling, no low back pain, no shooting leg pain Integumentary: no rash, no pruritis, no redness, no sores, no wounds Neurological: no head injury, no paralysis, no weakness, no parathesias, no numbness, no tingling Psychiatric: no anxiety Endocrine: no cold intolerance, no heat intolerance Hematologic/Lymphatic: no easy bruising, no easy bleeding Allergic/Immunologic: no urticaria Physical Examination Last Vital Signs Temp 97.5 F L 03/04/21 05:17 Pulse 96 H 03/04/21 10:41 Resp 20 03/04/21 05:17 BP 98/61 03/04/21 10:41 Pulse Ox 93 03/04/21 05:17 General appearance: no acute distress HEENT: Positive: PERRL, Normocephaly, Mucus Membranes Moist Neck: Positive: neck supple, trachea midline Cardiac: Positive: Reg Rate and Rhythm, S1/S2 Lungs: Positive: Normal Exam, Normal Breath Sounds Neuro: Positive: Grossly Intact Abdomen: Positive: Unremarkable, Soft Skin: Negative: Rash, Wound Musculoskeletal: No Pain Extremities: Present: upper extr. pulses, lower extr. pulses. Absent: edema Results 03/03/21 13:13 03/04/21 05:54 Coagulation 03/04/21 Range/Units 05:54 PT 29.1 H (12.2-14.9) Sec. INR 2.44 H (0.87-1.13) Comprehensive Metabolic Panel 03/04/21 Range/Units 05:54 Sodium 135 L (137-145) mmol/L Potassium 4.3 (3.6-5.0) mmol/L Chloride 95.1 L (98-107) mmol/L Carbon Dioxide 22 (22-30) mmol/L BUN 82 H (9-20) mg/dL Creatinine 8.9 H (0.8-1.3) mg/dL Glucose 99 (75-100) mg/dL Calcium 9.3 (8.4-10.2) mg/dL - Imaging and Cardiology Echo: pending EKG: report reviewed (Sinus rhythm with left bundle branch block), image reviewed EKG interpretations - Telemetry EKG Rhythm: Sinus Rhythm - EKG Sinus rhythms and dysrhythmias: sinus rhythm AV and intraventricular conduction: left bundle branch block Assessment and Plan Telemetry reviewed: Sinus rhythm 90. No events. #Episode of chest pain with elevated troponin in setting of ESRD on HD * Patient is currently chest pain-free with no cardiac symptoms and requesting to go home. * Troponins are elevated and unchanging, consistent with elevated troponins noted on previous visits, most likely due to ESRD. * Patient is M/W/F dialysis patient. Volume optimization per nephrology. * Lexiscan MPI stress test (07/2020) negative for reversible ischemia. EF estimated 50 to 70%. Normal LVEF. #A. fib with RVR in setting of valvular heart disease * Continue anticoagulation with Coumadin. * Echocardiogram reviewed (07/2020): LVEF 55 to 60%. LV normal size. Moderate LVH. LV wall motion is normal. Systolic and diastolic septal flattening consistent with RV volume and pressure overload. Unable to assess LV diastolic function due to prosthetic mitral valve. RV moderately dilated, RV SF moderately reduced. RA moderately dilated. MV mean gradient is 6.0 mmHg at heart rate of 80 bpm. [place]aflet mechanical mitral valve. Prosthetic MR within normal limits. Moderate to severe TR with centrally directed jet. RVSP is moderately elevated. PVR elevated. #Left bundle branch of unknown duration * Review of twelve-lead ECG shows sinus rhythm with left bundle branch block. Left bundle branch is not present on Lexiscan stress test from 07/2020. #Hypertension * Optimize antihypertensive regimen: Stop amlodipine 5 mg, continue metoprolol 25 mg twice daily with hold parameters. #COVID-19 positive * ID is consulted #DVT prophylaxis * Anticoagulated with Coumadin Patient is currently in stable cardiac status. Will follow This patient was seen in conjunction with Dr Brock Elias who agrees with assessment and plan of care - Patient Problems (1) Atrial fibrillation with RVR Current Visit: Yes Status: Chronic (2) COVID-19 Current Visit: Yes Status: Acute (3) Chest pain Current Visit: Yes Status: Resolved (4) DVT prophylaxis Current Visit: Yes Status: Acute (5) End stage renal disease Current Visit: Yes Status: Chronic (6) Valvular heart disease Current Visit: Yes Status: Chronic (7) Left bundle branch block Current Visit: Yes Status: Acute
[2021-03-04] MEDS ORDERED: METOPROLOL TARTRATE 25 MG TAB PO SCH (16:00)
[2021-03-04] MEDS: WARFARIN 2 MG TAB PO SCH (18:26)
[2021-03-04 22:04] LABS: Hepatitis B Surface Antigen Non-Reactive (Negative); Hepatitis C Virus Antibody Non-Reactive (NonReactive)
[2021-03-05 05:54] LABS: INR 3.24 (0.87-1.13)
[2021-03-05 05:59] LABS: Calcium 9.6 mg/dL (8.4-10.2)
[2021-03-05] MEDS ORDERED: REGADENOSON 0.4 MG/5 ML INJ IV ONE (08:02)
[2021-03-05] MEDS: DICYCLOMINE 20 MG TAB PO SCH ×2 (10:00→16:05)
[2021-03-05] MEDS: FLUTICASONE PROPIONATE NASAL SPRAY 16 GM NS SCH (10:00)
[2021-03-05 11:21] LABS: Calcium 9.1 mg/dL (8.4-10.2)
--- NOTE | 2021-03-05 12:34 | Progress Note ---
Assessment and Plan (Principal Problem) Chest Pain End Stage Renal Disease Hypertension Afib COVID-19 Plan: -Hemodialysis today for UF and clearance -Fluid restriction of 1 liter per day -Obtain daily weights -Monitor I/O's -Renally dose medications -Assess dialysis needs daily Subjective Date of service: 03/05/21 Principal diagnosis: ESRD Interval history: was n dialysis this AM Objective - Vital Signs Vital signs: Vital Signs - 12hr 03/05/21 03/05/21 03/05/21 04:03 07:43 08:52 Temperature 97.7 F Pulse Rate 89 Pulse Rate [ 97 H Right Radial] Respiratory 18 20 Rate Blood Pressure 115/65 139/75 O2 Sat by Pulse 97 97 Oximetry 03/05/21 03/05/21 03/05/21 08:54 09:16 09:18 Temperature Pulse Rate Pulse Rate [ Right Radial] Respiratory Rate Blood Pressure 135/64 153/78 146/87 O2 Sat by Pulse Oximetry 03/05/21 03/05/21 03/05/21 09:19 09:20 10:10 Temperature 98.9 F Pulse Rate 95 H Pulse Rate [ Right Radial] Respiratory 18 Rate Blood Pressure 131/62 125/80 121/77 O2 Sat by Pulse Oximetry 03/05/21 03/05/21 03/05/21 10:20 10:30 10:45 Temperature Pulse Rate 93 H 90 97 H Pulse Rate [ Right Radial] Respiratory Rate Blood Pressure 122/68 119/61 119/60 O2 Sat by Pulse Oximetry 03/05/21 03/05/21 03/05/21 11:00 11:15 11:30 Temperature Pulse Rate 94 H 93 H 90 Pulse Rate [ Right Radial] Respiratory Rate Blood Pressure 112/49 99/54 107/56 O2 Sat by Pulse Oximetry 03/05/21 03/05/21 11:45 12:00 Temperature Pulse Rate 93 H 98 H Pulse Rate [ Right Radial] Respiratory Rate Blood Pressure 105/57 103/53 O2 Sat by Pulse Oximetry - Lab 03/03/21 13:13 03/05/21 08:00 Most recent lab results Calcium 9.1 mg/dL (8.4-10.2) 03/05/21 08:00 Medications & Allergies - Medications Allergies/Adverse Reactions: Allergies heparin Allergy (Verified 05/14/20 23:58) Shortness of Breath IV dye Allergy (Uncoded 05/14/20 19:42) Shortness of Breath Home Medications: Home Medications Medication Instructions Recorded Confirmed Last Taken Type Aspirin 81 mg PO DAILY 05/15/20 03/04/21 03/02/21 10:00 History Benznidazole 100 mg PO TID 05/15/20 03/04/21 03/02/21 10:00 History Fluticasone Propionate 50 mcg INNOSTRIL BID 05/15/20 03/04/21 03/02/21 History Metoprolol Tartrate 25 mg PO BID 05/15/20 03/04/21 03/02/21 08:00 History 25 Omeprazole 20 mg PO DAILY 05/15/20 03/04/21 03/02/21 08:00 History Warfarin Sodium 4 mg PO DAILY 05/15/20 03/04/21 03/02/21 History Dicyclomine [Bentyl] 20 mg PO QID #28 tablet 05/16/20 03/04/21 03/04/21 10:00 Rx amLODIPine 5 mg PO DAILY #60 tab 05/16/20 03/04/21 03/02/21 Rx Albuterol Mdi (or & Nicu Only) 2 puff IH QID PRN #8.5 gram 06/03/20 03/04/21 03/02/21 10:00 Rx [ProAir HFA Inhaler] Benzonatate [Tessalon Perles] 100 mg PO Q8HR PRN #20 capsule 06/03/20 03/04/21 03/02/21 Rx Active Medications: Generic Name Dose Route Start Last Admin Trade Name Freq PRN Reason Stop Dose Admin Acetaminophen 650 mg 03/03/21 16:21 Acetaminophen 325 Mg Tab PO Q4H PRN Pain MILD(1-3)/Fever >100.5/OBRIEN Aspirin 81 mg 03/04/21 10:00 03/04/21 10:39 Aspirin Ec 81 Mg Tab PO 81 mg QDAY NARDA Administration Benzonatate 100 mg 03/03/21 16:23 03/04/21 10:40 Benzonatate 100 Mg Cap PO 100 mg Q8H PRN Administration Cough Dicyclomine HCl 20 mg 03/03/21 18:00 03/04/21 22:05 Dicyclomine 20 Mg Tab PO 20 mg QID NARDA Administration Fluticasone Propionate 50 mcg 03/04/21 10:00 03/04/21 22:08 Fluticasone Propionate Nasal [place] 16 Gm NS Not Given BID [facility] Metoprolol Tartrate 25 mg 03/04/21 16:00 03/04/21 22:07 Metoprolol Tartrate 25 Mg Tab PO Not Given BID [facility] Ondansetron HCl 4 mg 03/03/21 16:21 03/03/21 22:59 Ondansetron 4 Mg/2 Ml Inj IV 4 mg Q8H PRN Administration Nausea And Vomiting Pantoprazole Sodium 20 mg 03/04/21 10:00 03/04/21 10:40 Pantoprazole 20 Mg Tab PO 20 mg QDAY NARDA Administration Sodium Chloride 10 ml 03/03/21 22:00 03/04/21 22:06 Sodium Chloride 0.9% 10 Ml Flush Syringe IV 10 ml BID NARDA Administration Sodium Chloride 10 ml 03/03/21 16:21 Sodium Chloride 0.9% 10 Ml Flush Syringe IV PRN PRN LINE FLUSH Tramadol HCl 50 mg 03/03/21 16:31 03/04/21 10:40 Tramadol 50 Mg Tab PO 50 mg Q6H PRN Administration Pain, Moderate (4-6) Warfarin Sodium 2 mg 03/05/21 17:00 Warfarin 2 Mg Tab PO DAILY@1700 [facility]
--- NOTE | 2021-03-05 14:35 | Discharge Summary ---
Providers - Providers Date of Admission: 03/03/21 16:21 Date of discharge: 03/05/21 Attending physician: RICHARD RAMAN 03/03/21 Consult to Cardiac Rehabilitation [CONS] Routine Reason For Exam: Phase I 03/04/21 08:11 Consult to Physician [CONS] Routine Comment: Consulting Provider: TANG PABON Physician Instructions: Reason For Exam: Non-ST elevation VA 03/04/21 08:16 Consult to Physician [CONS] Routine Comment: Consulting Provider: RENNY SHERIDAN Physician Instructions: Reason For Exam: ESRD on HD Primary care physician: MAYA SAUCEDA Hospitalization Reason for admission: Chest pain Condition: Stable Pertinent studies: Chest x-ray; cardiomegaly, mild congestion possible CHF Procedures: Nuclear stress test; negative for ischemia, 47% EF Echocardiogram; EF 40 to 45% Hospital course: 50-year-old male patient with history of end-stage renal disease on hemodialysis,, congestive heart failure ,hypertension ,GERD A. fib and valvular heart disease on chronic anticoagulation with Coumadin and history of mitral valve replacement was admitted through emergency room with chest pain during hemodialysis. Patient was initially evaluated admitted to the hospital appropriately managed subsequently evaluated by cardiology and nephrology Cardiology recommended stress test which was negative for reversible ischemia And mild systolic congestive heart failure with ejection fraction of 40 to 45%, patient's medications optimized, nephrology scheduled for hemodialysis per schedule , patient symptoms slowly but gradually improved , today patient feels comfortable no new complaints , vital signs stable , physical examination prior to discharge did not show any new findings . patient is hemodynamically and clinically stable at discharge patient advised to follow-up with primary care physician, nephrology and cardiology per schedule also advised to comply with medications ,diet and follow-up visits Cleared by all the consultants for discharge and follow-up with them per schedule Discharge diagnosis: - Chest pain/angina: Resolved --Non-ST elevation VA; stress test negative --History of atrial fibrillation; rate controlled On chronic anticoagulation --Mild hyponatremia/ improved --History of valvular heart disease/ Stable --ESRD on hemodialysis --PUI/ COVID-19 test is negative Disposition: DC- TO HOME OR SELFCARE Final Discharge Diagnosis (Prints w/discharge instructions): Chest pain/angina. Non-ST elevation VA. Negative stress test. A. fib rate controlled. History of valvular heart disease. End-stage renal disease on hemodialysis. PUI/COVID- 19 test negative. Mild hyponatremia Time spent for discharge: 35 min Core Measure Documentation - Palliative Care Palliative Care/ Comfort Measures: Not Applicable - Core Measures Any of the following diagnoses?: none Exam - Constitutional Vitals: Temp Pulse Resp BP Pulse Ox 98.9 F 98 H 18 103/53 97 03/05/21 10:10 03/05/21 12:00 03/05/21 10:10 03/05/21 12:00 03/05/21 07:43 General appearance: Present: no acute distress, well-nourished - EENT Eyes: Present: PERRL, EOM intact - Neck Neck: Present: supple, normal ROM - Respiratory Respiratory effort: normal Respiratory: bilateral: diminished, negative: rales, rhonchi, wheezing - Cardiovascular Rhythm: regular Heart Sounds: Present: S1 & S2 - Extremities Extremities: no ischemia, No edema - Abdominal General gastrointestinal: Present: soft, non-tender, non-distended, normal bowel sounds - Integumentary Integumentary: Present: clear, warm - Musculoskeletal Musculoskeletal: strength equal bilaterally - Psychiatric Psychiatric: appropriate mood/affect, cooperative - Neurologic Neurologic: CNII-XII intact, moves all extremities Plan Activity: advance as tolerated Diet: renal, other (Cardiac) Additional Instructions: Follow renal/hemodialysis per schedule Strongly advised to comply with dialysis. Strongly advised to comply with medications, diet, follow-up visits. If you have worsening symptoms contact MD or go to emergency room. Frequent INR checks to maintain target levels of INR. Next INR check on 03/06/2021 or 03/09/2021 at PMD/cardiology office Follow up with: MAYA SAUCEDA MD [Primary Care Provider] - 3-5 Days RENNY SHERIDAN MD [Staff Physician] - 7 Days TANG PABON MD [Staff Physician] - 7 Days Forms: Warfarin Discharge Instruction Prescriptions: Dicyclomine [Bentyl] 20 mg PO QID #28 tablet Benzonatate [Tessalon Perles] 100 mg PO Q8H PRN #30 capsule PRN Reason: Cough
[2021-03-05] MEDS: METOPROLOL TARTRATE 25 MG TAB PO SCH (16:05)
[2021-03-05] MEDS: ASPIRIN EC 81 MG TAB PO SCH (16:05)
[2021-03-05] MEDS: PANTOPRAZOLE 20 MG TAB PO SCH (16:05)
[2021-03-05 16:06] VITALS: BP 118/54
[2021-03-05] MEDS ORDERED: WARFARIN 2 MG TAB PO SCH (17:00)
--- NOTE | 2021-03-05 17:57 | Progress Note ---
Assessment and Plan Echo reviewed - EF 40-45%, mild diastolic dysfxn, RV mod dilated, RV sys fxn mod reduced, LA mod dilated, RA mildly dilated, mech AV w/normal gradients, mech prosthetic MV w/mean gradient 5-6 mmHg, mild TR, RVSP 45 mmHg. Lexiscan stress MPI this AM revealed no significant ischemia, EF 47%. Suspect NSTEMI Type 2 in the setting of ESRD. Currently stable cardiac status. Pt may be discharged from a Cardiology standpoint. Recommend follow-up with Primary Search Coordinator within 1-2 weeks ([facility]). Pt seen in conjunction with Dr. Kendall, who agrees with the assessment and plan of care. - Patient Problems (1) Chest pain Status: Resolved (2) Left bundle branch block Status: Acute (3) ESRD on hemodialysis Status: Chronic (4) Valvular heart disease Status: Chronic (5) History of mechanical aortic valve replacement Status: Chronic (6) History of mitral valve replacement with mechanical valve Status: Chronic (7) PAF (paroxysmal atrial fibrillation) Status: Chronic Subjective Date of service: 03/05/21 Principal diagnosis: ESRD/HD Interval history: Seen in stress lab this AM. No complaints. Objective Last Vital Signs Temp 98.6 F 03/05/21 16:03 Pulse 99 H 03/05/21 16:03 Resp 18 03/05/21 16:03 BP 118/54 03/05/21 16:05 Pulse Ox 99 03/05/21 16:03 - Physical Examination General: No Apparent Distress HEENT: Positive: EOMI, Normocephaly, Mucus Membranes Moist Neck: Positive: neck supple, trachea midline Cardiac: Positive: Reg Rate and Rhythm, S1/S2 Lungs: Positive: clear to auscultation (bilaterally) Neuro: Positive: Grossly Intact Abdomen: Positive: Soft. Negative: Tender Skin: Negative: Rash Musculoskeletal: No Pain Extremities: Present: lower extr. pulses. Absent: edema - Labs and Meds Coagulation 03/05/21 Range/Units 05:16 PT 33.4 H (12.2-14.9) Sec. INR 3.24 H (0.87-1.13) Comprehensive Metabolic Panel 03/05/21 03/05/21 Range/Units 05:16 08:00 Sodium 135 L 135 L (137-145) mmol/L Potassium 4.6 4.3 (3.6-5.0) mmol/L Chloride 91.5 L 94.1 L (98-107) mmol/L Carbon Dioxide 22 20 L (22-30) mmol/L BUN 100 H 94 H (9-20) mg/dL Creatinine 10.5 H 10.1 H (0.8-1.3) mg/dL Glucose 96 115 H (75-100) mg/dL Calcium 9.6 9.1 (8.4-10.2) mg/dL - Imaging and Cardiology EKG: report reviewed, image reviewed Pharmacologic stress test: pending Echo: report reviewed (03/04/2021 - EF 40-45%, mild diastolic dysfxn, RV mod dilated, RV sys fxn mod reduced, LA mod dilated, RA mildly dilated, mech AV w/normal gradients, mech prosthetic MV w/mean gradient 5-6 mmHg, mild TR, RVSP 45 mmHg) - Telemetry EKG Rhythm: Sinus Rhythm - EKG Sinus rhythms and dysrhythmias: sinus rhythm AV and intraventricular conduction: left bundle branch block
== END 2021-03-05 17:15 | disposition home or self-care (01) ==
LOC: ED 11:49 → 3A 16:21
PROVIDERS: ADMIT Internal Medicine; ATTEND Internal Medicine
DX: U07.1 COVID-19 (principal); R07.89 Other chest pain; I38 Endocarditis, valve unspecified; I13.2 Hypertensive heart and chronic kidney disease with heart failure and with stage 5 chronic kidney disease, or end stage renal disease; I50.9 Heart failure, unspecified; N18.6 End stage renal disease; I48.0 Paroxysmal atrial fibrillation; I44.7 Left bundle-branch block, unspecified; I21.4 Non-ST elevation (NSTEMI) myocardial infarction; K21.9 Gastro-esophageal reflux disease without esophagitis; Z99.2 Dependence on renal dialysis; Z79.899 Other long term (current) drug therapy; Z98.890 Other specified postprocedural states; Z79.82 Long term (current) use of aspirin; Z79.01 Long term (current) use of anticoagulants
CPT/HCPCS: 36415; 71045; 78452; 80048; 80061; 80074; 82550; 82553; 83880; 84484; 85025; 85610; 85730; 87641; 93005; 93017; 93306; 96374; 96375; 99285; A9502; G0378; J2405; J2785; U0003; 85007; G0257